=== PATIENT | male | born 1955 | race Hispanic/Latino ===

== ENCOUNTER → 2016-10-07 | Day surgery (SDC) | payer OTHER ==
[~2016-10-07] VITALS: Ht 167.6 cm; Wt 85.7 kg
[~2016-10-07] MED LIST: FERR324T2 PO; HSC.125T PO; LISI10TA PO; LISI30TA5 PO; OMEP40CA36 PO; Sodium Chloride LOK Flush 10 mL Syringe IV PRN; fentaNYL-PF 50 mCg/mL 2 mL Inj IVPUSH PRN
[2016-10-07 13:52] VITALS: BP 169/101; PULSE 118; RESP 16; O2SAT 98
[2016-10-07] MEDS: 0.9% Sodium Chloride 1,000 ML IV PRN ×3 (14:01→15:52)
[2016-10-07 16:00] VITALS: BP 137/87; PULSE 101; RESP 16; O2SAT 94
[2016-10-07 16:10] VITALS: BP 115/74; PULSE 97; RESP 16; O2SAT 96
[2016-10-07 16:21] VITALS: BP 137/93; PULSE 95; RESP 16; O2SAT 96
--- NOTE | 2016-10-07 18:38 | ENDO ---
[address] [address] ENDOSCOPY PROCEDURE PATIENT: ANTONIO LONGO : 1955 MR#: [id number] ADMIT: 10/07/2016 JOB ID: [id number] DATE: 10/07/2016 PROCEDURE: Esophagogastroduodenoscopy. INDICATIONS: Iron-deficiency anemia. The patient's ASA classification is 2, Mallampati score is 2. MEDICATIONS: 1. Versed at 7 mg. 2. Fentanyl 50 mcg. INSTRUMENT USED: GIF H 180 J. PROCEDURE DETAILS: After informed consent was obtained, the patient was brought into the GI suite, where he was placed on oxygen via nasal cannula and monitored with continuous pulse oximeter, telemetry, and blood pressure monitoring. A time-out was performed. Then, she was placed in the left lateral decubitus position and medications were administered for sedation. A bite block was placed. The standard EGD scope was inserted through the bite block and advanced under direct visualization to the second portion of the duodenum without difficulty. FINDINGS: 1. Normal-appearing duodenal bulb, first and second portion. Multiple random biopsies were obtained. 2. Normal-appearing pylorus, antrum. In the gastric body, there were several polyps ranging in size 5 mm to 7 mm. Polyp appearance was consistent with fundic gland polyps. The largest polyp was sampled with cold biopsy forceps. 3. Retroflexed views in the gastric body revealed a normal-appearing cardia and fundus. 4. The squamocolumnar junction was at approximately 36 cm. There was one short tongue of salmon-colored mucosa arising at 38 cm. Multiple random biopsies were obtained. The remainder of the esophagus otherwise unremarkable. IMPRESSION: 1. Gastric body polyp. 2. 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 RECOMMENDATIONS: 1. Continue PPI. 2. Await biopsy results. 3. Proceed to colonoscopy. PROCEDURE PERFORMED: Colonoscopy. INDICATION: Iron-deficiency anemia. Please see above for ASA classification, Mallampati score, and medications. INSTRUMENT: PCF H 180AL PREPARATION QUALITY: Good. PROCEDURE IN DETAIL: After completion of the EGD exam, the patient was turned and then a digital rectal exam was performed which was unremarkable. The colonoscope was then inserted into the rectum and advanced under direct visualization to the terminal ileum which was identified by the presence of the ileocecal valve and appendiceal orifice. Once the terminal ileum was reached, the colonoscope was withdrawn back into the rectum as mucosa and lumen were examined. In the rectum, retroflexion was performed. Following retroflexion, remaining air in the rectum was suctioned, and procedure was completed. FINDINGS: 1. Normal-appearing terminal ileum. Multiple random biopsies were obtained. 2. Random biopsies were obtained throughout the entire colon. 3. In the ascending colon, there was a diminutive polyp which was removed with cold biopsy forceps. 4. In the transverse colon, there was an approximately 6 mm sessile polyp which was removed with a hot snare. 5. Scattered diverticula were seen throughout the left side of the colon. IMPRESSIONS: 1. Normal-appearing terminal ileum. 2. Ascending colon polyp. 3. Transverse colon polyp. 4. Left-sided diverticulosis. RECOMMENDATION: 1. Await pathology results. 2. No findings on upper endoscopy or colonoscopy to explain the patient's iron-deficiency anemia. Will recommend capsule endoscopy to further evaluate. COMPLICATIONS: None. ESTIMATED BLOOD LOSS: Less than 5 mL.
--- NOTE | 2016-10-12 17:05 | PATH ---
SURGICAL PATHOLOGY Attending Physician:Abida Brizulea CASE STATUS: Signed Out PATIENT NAME: ANTONIO LONGO PID: [id number] : 1955 DATE COLLECTED:10/07/2016 00:00 SPECIMEN: 1: Duodenum, Biopsy 2: Gastric, Biopsy 3: Stomach, Polyp, Biopsy 4: Esophagus, Biopsy 5: Colon, Polyp 6: Colon, Polyp 7: Colon, Biopsy 8: Ileum, Biopsy CLINICAL HISTORY: ANEMIA 1). DUODENUM BIOPSY 2). GASTRIC BIOPSY RULE OUT H PYLORI 3). GASTRIC POLYP RULE OUT H PYLORI 4). DISTAL ESOPHAGUS BIOPSY 5). TANSVERSE COLON POLYP 6). ASCENDING COLON POLYP 7). RANDOM COLON BIOPSY 8). TERMINAL ILEUM BIOPSY FINAL DIAGNOSIS: 1. Duodenum, Biopsy: Duodenal mucosa with no diagnostic abnormality. Negative for active inflammation, features of sprue, dysplasia or malignancy. 2. Stomach, Biopsy: Gastric body mucosa with no diagnostic abnormality. Helicobacter organisms not identified. Negative for intestinal metaplasia, dysplasia, and malignancy. 3. Gastric Polyp, Biopsy: Fundic gland polyp. Helicobacter organisms not identified. Negative for intestinal metaplasia, dysplasia, and malignancy. 4. Distal Esophagus, Biopsy: Squamocolumnar junctional mucosa with no diagnostic abnormality. Negative for intestinal metaplasia, dysplasia, and malignancy. 5. Transverse Colon Polyp, Biopsy: Hyperplastic polyp. 6. Ascending Colon Polyp, Biopsy: Tubular adenoma. 7. Random Colon, Biopsy: Colonic mucosa with no diagnostic abnormality. Negative for active or microscopic colitis. Negative for granulomata, dysplasia or malignancy. 8. Terminal Ileum, Biopsy: Ileal mucosa with no diagnostic abnormality. Negative for active inflammation, granulomata, dysplasia or malignancy. ICD10: D50.9 GROSS DESCRIPTION: The specimens are received in formalin, labeled with the patient's name, and sublabeled as the following: (1) duodenum biopsy; (2) gastric biopsy; (3) gastric polyp; (4) distal esophagus biopsy; (5) transverse colon polyp; (6) ascending colon polyp; (7) random colon Bx; (8) terminal ileum biopsy. (1) The specimen consists of multiple fragments of swanson glistening semitranslucent tissue (1.5 x 0.2 x 0.1 cm in aggregate). Section code: (1A) tissue. Specimen entirely submitted. (2) The specimen consists of multiple fragments of swanson glistening semitranslucent tissue (0.9 x 0.2 x 0.1 cm in aggregate). Section code: (2A) tissue. Specimen entirely submitted. (3) The specimen consists of multiple fragments of swanson glistening semitranslucent tissue (0.6 x 0.2 x 0.1 cm in aggregate). Section code: (3A) tissue. Specimen entirely submitted. (4) The specimen consists of a fragment of gamez-white glistening translucent tissue (0.3 x 0.2 x 0.1 cm). Section code: (4A) tissue. Specimen entirely submitted. (5) The specimen consists of multiple fragments of swanson glistening semitranslucent tissue (0.7 x 0.3 x 0.1 cm in aggregate). Section code: (5A) tissue. Specimen entirely submitted. (6) The specimen consists of multiple fragments of swanson glistening semitranslucent tissue (0.5 x 0.2 x 0.1 cm in aggregate). Section code: (6A) tissue. Specimen entirely submitted. (7) The specimen consists of multiple fragments of swanson glistening semitranslucent tissue (1.2 x 0.6 x 0.1 cm in aggregate). Section code: (7A) tissue. Specimen entirely submitted. (8) The specimen consists of multiple fragments of swanson glistening semitranslucent tissue (0.8 x 0.2 x 0.1 cm in aggregate). Section code: (8A) tissue. Specimen entirely submitted. 10/09/16 ICD-9 CODES: CPT CODES: 1: 06154 2: 64943 3: 54159 4: 58734 5: 32701 6: 28192 7: 00650 8: 41882 Electronically Signed Out Sushil Coleman MD, Ph.D. [facility] Pathology [facility], [place] [address] Technical component performed at [facility], [facility] [address], [place], [address]
== END | disposition home or self-care (01) ==
LOC: END 01:34
PROVIDERS: ATTEND Internal Medicine Gastroenterology
DX: D50.9 Iron deficiency anemia, unspecified (principal); D12.2 Benign neoplasm of ascending colon; K63.5 Polyp of colon; K57.30 Diverticulosis of large intestine without perforation or abscess without bleeding; K31.7 Polyp of stomach and duodenum; K21.9 Gastro-esophageal reflux disease without esophagitis; K20.9 Esophagitis, unspecified
CPT/HCPCS: 43239; 45380; 45385; 99153; G0500; J2250; J3010; J7030